=== PATIENT | male | born 1970 | race African-American/Black ===

== ENCOUNTER 2021-05-15 08:49 | Observation (INO) ==
[2021-05-15] MEDS ORDERED: NITROGLYCERIN SL 0.4 MG TABLET SL PRN (09:27)
[2021-05-15] MEDS ORDERED: ASPIRIN 325 MG TABLET PO STA (09:27)
[2021-05-15 09:31] LABS: Basophils % 0.4 % (0.0-0.8); Eosinophils % 0.3 % (0.00-10.9); Hematocrit 44.3 VOL% (42.0-52.0); Hemoglobin 15.4 GM/DL (14.0-18.0); Immature Granulocytes % 0.3 %; Immature Granulocytes Absolute 0.03 #; Lymphocytes # 2.3 10*3/uL (1.4-4.0); Lymphocytes % 25.3 % (21.2-54.2); Mean Corpuscular HGB Conc 34.8 GM/DL (32-36); Mean Corpuscular Volume 86.7 FL (87-102); Mean Platelet Volume 9.6 FL (9.6-12.0); Monocytes % 6.2 % (1.7-12.7); Neutrophils % 67.5 % (38.7-73.9); Platelet Count 339 T/CUMM (130-400); Red Blood Count 5.11 MC/CUMM (3.8-5.5); Red Cell Distribution Width 13.3 % (9.3-17.3); White Blood Count 9.1 T/CUMM (4-12)
[2021-05-15 09:51] LABS: Albumin 4.1 G/DL (3.4-5.0); Bilirubin,Total 0.6 MG/DL (0.20-1.00); Calcium 9.1 MG/DL (8.5-10.1); Osmolality,Calculated 277.8 MOS/KG (273-304); Potassium 3.3 MMOL/L (3.5-5.1); Total Protein 7.9 G/DL (6.4-8.2)
[2021-05-15] MEDS ORDERED: ONDANSETRON 4 MG/2 ML VIAL IV PRN (10:37)
[2021-05-15] MEDS ORDERED: GLUCAGON 1 MG VIAL IM PRN (10:37)
[2021-05-15] MEDS ORDERED: DEXTROSE 10% 250 ML BAG IV PRN (10:44)
[2021-05-15] MEDS: ENOXAPARIN 40 MG/0.4 ML SYRINGE SUBCUT SCH (11:51)
[2021-05-15] MEDS ORDERED: POTASSIUM CHLORIDE 20 MEQ TABLET PO ONE (12:33)
[2021-05-16 06:36] LABS: Calcium 9.5 MG/DL (8.5-10.1); Osmolality,Calculated 279.4 MOS/KG (273-304); Potassium 3.2 MMOL/L (3.5-5.1); Risk Ratio 7.26; VLDL Cholesterol 24.4 MG/DL
[2021-05-16] MEDS ORDERED: POTASSIUM CHLORIDE 20 MEQ TABLET PO ONE ×2 (07:41→13:40)
[2021-05-16] MEDS ORDERED: CHLORTHALIDONE 25 MG TABLET PO SCH (09:00)
[2021-05-16] MEDS ORDERED: PANTOPRAZOLE 40 MG TABLET PO SCH (09:00)
[2021-05-16] MEDS ORDERED: POTASSIUM CHLORIDE 20 MEQ TABLET PO SCH (09:00)
[2021-05-16] MEDS ORDERED: atenoloL 50 MG TABLET PO SCH ×2 (09:00)
[2021-05-16] MEDS: ENOXAPARIN 40 MG/0.4 ML SYRINGE SUBCUT SCH (11:10)
[2021-05-16 12:31] VITALS: BP 128/87
== END 2021-05-16 14:28 | disposition home or self-care (01) ==
LOC: N.EDINP 08:49 → N.ED 08:49 → SUATTDRO 10:37 → N.TELES 11:57
PROVIDERS: ADMIT Emergency Medicine; ATTEND Internal Medicine